=== PATIENT | male | born 1995 | race Caucasian/White ===

== ENCOUNTER 2016-06-27 01:15 | Inpatient (IN) | payer OTHER ==
--- NOTE | 2016-06-27 01:53 | ED ---
Psych HPI - General Source: patient, RN notes reviewed Mode of arrival: ambulatory <Angela Mahan - Last Filed: 06/27/16 03:55> <Arya Penaloza - Last Filed: 06/27/16 06:11> - General Chief Complaint: Psychiatric Symptoms Stated Complaint: petition Time Seen by Provider: 06/27/16 01:29 - History of Present Illness Initial Comments: 21-year-old male presents to the emergency department with a chief complaint of suicidal ideation. Patient states earlier today he was having thoughts of suicide as well as a plan to hang himself he talked his brother who talked him out of it. Patient states he's never been diagnosed with any psychiatric disorder. Patient states he does have a lot of stress in his life at this time. Patient states is not currently suffering from any acute medical concerns. Patient denies any recent fever, chills, shortness of breath, chest pain, back pain, abdominal pain, nausea vomiting, numbness or tingling, dysuria or hematuria, constipation or diarrhea, headaches or visual changes, or any other current symptoms. (Angela Mahan) - Related Data Home Medications Medication Instructions Recorded Confirmed No Known Home Medications [No 06/27/16 06/27/16 Known Home Medications] Allergies Allergy/AdvReac Type Severity Reaction Status Date / Time No Known Allergies Allergy Verified 06/27/16 01:27 Review of Systems ROS Other: All systems not noted in ROS Statement are negative. <Angela Mahan - Last Filed: 06/27/16 03:55> ROS Other: All systems not noted in ROS Statement are negative. <Arya Penaloza - Last Filed: 06/27/16 06:11> ROS Statement: Those systems with pertinent positive or pertinent negative responses have been documented in the HPI. Past Medical History Past Medical History: No Reported History History of Any Multi-Drug Resistant Organisms: None Reported Past Surgical History: Appendectomy Past Psychological History: No Psychological Hx Reported Smoking Status: Current every day smoker Past Alcohol Use History: Occasional Past Drug Use History: Marijuana <Angela Mahan - Last Filed: 06/27/16 03:55> General Exam Limitations: no limitations General appearance: alert, in no apparent distress Head exam: Present: atraumatic, normocephalic, normal inspection Neck exam: Present: normal inspection. Absent: tenderness, meningismus, lymphadenopathy Respiratory exam: Present: normal lung sounds bilaterally. Absent: respiratory distress, wheezes, rales, rhonchi, stridor Cardiovascular Exam: Present: regular rate, normal rhythm, normal heart sounds. Absent: systolic murmur, diastolic murmur, rubs, gallop, clicks Neurological exam: Present: alert, oriented X3, CN II-XII intact Psychiatric exam: Present: normal affect, depressed, other (No current suicidal thoughts. No current plan.). Absent: homicidal ideation, suicidal ideation Skin exam: Present: warm, dry, intact, normal color. Absent: rash <Angela Mahan - Last Filed: 06/27/16 03:55> Course <Angela Mahan - Last Filed: 06/27/16 03:55> <Arya Penaloza - Last Filed: 06/27/16 06:11> Vital Signs 06/27/16 06/27/16 01:22 05:26 Temperature 97.8 F 97.8 F Pulse Rate 68 78 Respiratory 18 24 Rate Blood Pressure 139/82 108/62 O2 Sat by Pulse 98 98 Oximetry - Reevaluation(s) Reevaluation #1: 06/27/16 03:59 The patient was brought in for evaluation and was evaluated by the psychiatric service and will be admitted for inpatient treatment. (Arya Penaloza) Reevaluation #2: 06/27/16 05:16 A physician cert was filled out by me. (Arya Penaloza) Reevaluation #3: 06/27/16 06:10 At this time apparently the patient's insurance is not covered in this facility an alternative treatment facility is currently being explored. (Arya Penaloza) Medical Decision Making <Angela Mahan - Last Filed: 06/27/16 03:55> <Arya Penaloza - Last Filed: 06/27/16 06:11> - Medical Decision Making 21-year-old male presents to the emergency department chief complaint of suicidal thoughts and plan and it did happen earlier that has since resolved. At this time the patient does not appear to be suffering from any acute medical emergencies. Stent patient is cleared to be evaluated by psychiatry. At this time the patient will be admitted to psychiatry as discussed with the patient and he did sign an willingly. (Angela Mahan) - Lab Data Lab Results 06/27/16 Range/Units 01:45 Urine Opiates Screen Not Detected (NotDetected) Ur Oxycodone Screen Not Detected (NotDetected) Urine Methadone Screen Not Detected (NotDetected) Ur Propoxyphene Screen Not Detected (NotDetected) Ur Barbiturates Screen Not Detected (NotDetected) U Tricyclic Antidepress Not Detected (NotDetected) Ur Phencyclidine Scrn Not Detected (NotDetected) Ur Amphetamines Screen Not Detected (NotDetected) U Methamphetamines Scrn Not Detected (NotDetected) U Benzodiazepines Scrn Not Detected (NotDetected) Urine Cocaine Screen Not Detected (NotDetected) U Marijuana (THC) Screen Detected H (NotDetected) Disposition Time of Disposition: 02:35 <Angela Mahan - Last Filed: 06/27/16 03:55> <Arya Penaloza - Last Filed: 06/27/16 06:11> Clinical Impression: Depression, Suicidal ideation Disposition: TRANSFER TO PSYCH HOSP/UNIT Condition: Stable Referrals: None,Stated [Primary Care Provider] - 1-2 days
[2016-06-27] MEDS: NICOTINE 21MG/24HR PATCH TRANSDERM STA ×2 (06:01→06:02)
[2016-06-27 06:42] LABS: Basophils % (A) 0 %; CH 33.7; CHCM 37.2; Eosinophils % (A) 0 %; HCT 45.6 % (39.0-53.0); HGB 15.9 gm/dL (13.0-17.5); Luc # (Auto) 0.16; Luc % (Auto) 2; Lymphocytes # (A) 1.7 k/uL (1.0-4.8); Lymphocytes % (A) 19 %; MCH 31.7 pg (25.0-35.0); MCHC 34.9 g/dL (31.0-37.0); MCV 90.8 fL (80.0-100.0); Mean Platelet Volume 6.9; Monocytes # (A) 0.6 k/uL (0-1.0); Monocytes % (A) 7 %; Neutrophils # (A) 6.4 k/uL (1.3-7.7); Neutrophils % (A) 72 %; RBC 5.02 m/uL (4.30-5.90); RDW 12.5 % (11.5-15.5); WBC 8.9 k/uL (4.0-11.0); WBC (Perox) 8.98
[2016-06-27 06:43] LABS: Appearance,Urine Clear (Clear); Bilirubin,Urine Negative (Negative); Glucose,Urine (UA) Negative (Negative); Ketones,Urine Negative (Negative); Leukocyte Esterase,Urine Negative (Negative); Nitrite,Urine Negative (Negative); PH, Urine 5.5 (5.0-8.0); Protein,Urine Trace (Negative); Specific Gravity,Urine 1.018 (1.001-1.035); UA Billing (MACRO vs. MICRO) CHEM; Urobilinogen,Urine <2.0 mg/dL (<2.0)
[2016-06-27 06:50] LABS: ALT 35 U/L (21-72); AST 24 U/L (17-59); Alkaline Phosphatase 72 U/L (38-126); Anion Gap 13 mmol/L; Blood Urea Nitrogen 10 mg/dL (9-20); Calcium 9.8 mg/dL (8.4-10.2); Carbon Dioxide 25 mmol/L (22-30); Chloride 106 mmol/L (98-107); Glucose 91 mg/dL (74-99); Non-African American GFR(MDRD) >60 (>60 ml/min/1.73 sqM); Potassium 3.9 mmol/L (3.5-5.1); Sodium 144 mmol/L (137-145); Total Bilirubin 0.7 mg/dL (0.2-1.3)
[2016-06-27] MEDS ORDERED: MAG HYDROX/AL HYDROX/SIMETH 30 ML CUP PO PRN (10:06)
[2016-06-27] MEDS ORDERED: ACETAMINOPHEN TAB 325 MG TAB PO PRN (10:06)
[2016-06-27] MEDS ORDERED: ZIPRASIDONE 20 MG VIAL IM PRN (10:06)
[2016-06-27] MEDS ORDERED: MAGNESIUM HYDROXIDE 2,400 MG/10 ML CUP PO PRN (10:06)
[2016-06-27 11:03] VITALS: BMI 17.1
--- NOTE | 2016-06-27 15:33 | P.CONS ---
History of Present Illness - Reason for Consult Consult date: 06/27/16 Medical management - History of Present Illness This is a 21-year-old male. He does not have a primary care physician with past history of scoliosis, tobacco use and dependence. He states that he had in a big fight with his parents and then threatened to kill himself. He denies any plan. He states he has been depressed for a while. He has not sought treatment or been on any medications. His parents made him come into [facility] emergency center for evaluation. Urinalysis detected marijuana. He states he uses marijuana occasionally. He denies any physical concerns at this time. Review of Systems All systems: negative Constitutional: Denies chills, Denies fever Eyes: denies blurred vision, denies pain Ears, nose, mouth and throat: Denies headache, Denies sore throat Cardiovascular: Denies chest pain, Denies shortness of breath Respiratory: Denies cough Gastrointestinal: Denies abdominal pain, Denies diarrhea, Denies nausea, Denies vomiting Musculoskeletal: Denies myalgias Integumentary: Denies pruritus, Denies rash Neurological: Denies numbness, Denies weakness Psychiatric: Reports depression, Reports hopelessness, Reports suicidal ideation , Denies anxiety Endocrine: Denies fatigue, Denies weight change Past Medical History Past Medical History: No Reported History Additional Past Medical History / Comment(s): Back pain since age 15 History of Any Multi-Drug Resistant Organisms: None Reported Past Surgical History: Appendectomy Past Anesthesia/Blood Transfusion Reactions: No Reported Reaction Past Psychological History: No Psychological Hx Reported Smoking Status: Current every day smoker Past Alcohol Use History: Occasional Additional Past Alcohol Use History / Comment(s): Patient is a smoker of one half to one pack per day since he was 17 years old. He smokes marijuana occasionally. He drinks alcohol occasionally. He denies any other street drug use. Past Drug Use History: Marijuana - Past Family History Father Additional Family Medical History / Comment(s): Father is 49 years of age with chronic back problems. Mother Additional Family Medical History / Comment(s): Mother is alive at age 46 with no major medical problems. Brother(s) Additional Family Medical History / Comment(s): Patient has 1 brother with no major medical problems. Patient has 1 sister with no major medical problems. Patient does not have any children. Medications and Allergies Home Medications Medication Instructions Recorded Confirmed Type No Known Home Medications [No 06/27/16 06/27/16 History Known Home Medications] Allergies Allergy/AdvReac Type Severity Reaction Status Date / Time No Known Allergies Allergy Verified 06/27/16 13:52 Physical Exam Vitals: Vital Signs Temp Pulse Pulse Resp BP BP Pulse Ox 06/27/16 10:19 98 F 77 18 105/86 96 06/27/16 09:57 97.6 F 81 17 124/74 Intake and Output 06/26/16 06/27/16 06/27/16 22:59 06:59 14:59 Other: Weight 57.153 kg Patient Weight 06/28/16 06:59 Weight 57.153 kg Gen: This is a thin 21-year-old male. He is cooperative and appears to be in no acute distress. HEENT: Head is atraumatic, normocephalic. Pupils equal, round. Sclerae is anicteric. NECK: Supple. No JVD. No lymphadenopathy. No thyromegaly. LUNGS: Clear to auscultation. No wheezes or rhonchi. No intercostal retractions. HEART: Regular rate and rhythm. No murmur. ABDOMEN: Soft. Bowel sounds are present. No masses. No tenderness. EXTREMITIES: No pedal edema. No calf tenderness. NEUROLOGICAL: Patient is awake, alert and oriented x3. Cranial nerves 2 through 12 are grossly intact. Results CBC & Chem 7: 06/27/16 06:30 06/27/16 06:30 Assessment and Plan Plan: 1. Depression with threat of suicide. Patient admitted to the mental health unit. Continue current plan of care. 2. Tobacco use and dependence. Continue nicotine patch. 3. Scoliosis with chronic back pain. Continue Tylenol as needed. 4. Occasional marijuana use. Continue as in #1. Impression and plan of care have been directed as dictated by the signing physician. Graciela Mo nurse practitioner acting as scribe for signing physician. Time with Patient: Greater than 30
--- NOTE | 2016-06-27 19:10 | HP ---
DATE OF ADMISSION: 06/27/2016 IDENTIFYING DATA: Patient is a 21-year-old single male, currently living with his family. Patient presented to the mental health unit through the emergency room with suicidal ideation. HISTORY OF PRESENT ILLNESS: The patient stated that he has been struggling with symptoms of depression for the last year since he lost his best friend who was killed in July of 2015 with a hit-and-run accident. Patient reported that his depression has been getting worse over the last couple of weeks due to multiple stressors in his life. 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 In addition, he was arrested recently driving on a suspended license, and even today he is supposed to be in court. He also has a lot of relationship problems between him and his family. Patient stated that he has been not able to sleep at night due to high anxiety, racing thoughts, and "I always over-analyze everything." Patient reports suicidal ideation with different plans over the last couple of days, including shooting himself with a hunting rifle or hang himself. Initially patient was petitioned by his mother, and according to the petition she stated patient did verbalize suicidal ideation with the plan to shoot himself and he said, "I want to end it all once and for all." Even when they took the rifle from him, he said, "There are other ways to kill myself." Patient endorses that he has a lot of obsessions with pornography since age 13, and his family did not find out until he turned 16. Patient stated that since they found out, they have been having mistrust in his behavior, especially when it comes to his younger sister who is turning 18 years of age. Patient said, "I know that I am very sexually preoccupied, but I cannot stop it." He denied any child pornography, but he describes that his obsession with pornography is his way to relieve a lot of anxiety and worries. Patient does not endorse manic episodes. He is reporting no thought of harming others. He is endorsing no current auditory or visual hallucinations. He talked in detail that he lost at least 3 best friends over the last couple of years, and the three of them from accidents or hit and run. PAST PSYCHIATRIC HISTORY: This is his first inpatient psychiatric admission. There is no history of suicidal attempt in the past. There is brief outpatient family counseling at age 16, as he was having issues with pornography and getting into fights with his siblings. There is no previous trial on any psychotropic medication. SUBSTANCE ABUSE HISTORY: Marijuana. He started smoking marijuana at age 17, and he does smoke it between 2 and 3 times a month. Last time it was a couple of days ago. His urine drug screen was positive for cannabis. He denied any other illicit drug use. FAMILY HISTORY OF CHEMICAL DEPENDENCY AND MENTAL ILLNESS: Alcohol use disorder running on both sides of his family, as his maternal aunt and maternal uncles struggle with drinking problems. MEDICATIONS: No known medication. ALLERGIES: NO KNOWN ALLERGY. ACUTE MEDICAL PROBLEMS: None. VITAL SIGNS: Temperature 97.8, pulse 68, respiration rate 18, blood pressure 139/82. LEGAL PROBLEMS: Patient was recently arrested with driving on a suspended license. He stated that he has a lots of unpaid traffic tickets, up to $700. He denied any domestic assault behavior. SOCIAL HISTORY: Patient is the middle of 3. He has one older brother and one younger sister. He graduated from high school. He denied any history of physical or sexual abuse. He stated that his father is working in the post office and his mother is an warranty administrator at [employer]. He had a couple of classes in college. 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 The longest relationship that he had was 2 years ago for one year. He was in this relationship from October until January. Then she left to work in [place], [place]. Currently he is involved in a 2-month relationship. He describes a lot of relationship problems with his family, especially since he has been laid off. MENTAL STATUS EXAMINATION: Patient is a male who appears his stated age. He was dressed in hospital gown. Good eye contact. Speech is coherent, non-pressured. Thought process is linear and goal-directed. There is no evidence of loose association. He endorses depressed mood with suicidal ideation with different plans. He reports no homicidal ideation. Affect is constricted. He demonstrated no verbal or physical aggression. No psychomotor agitation. He denied any visual or auditory hallucinations. He denied any delusion or idea of reference. He does not appear manic or hypomanic. His cognitive function is intact, as he is alert and oriented to person, place and date. He is able to name the day of the week. He is able to recall 3 objects after a delay of several minutes. His insight and judgment are limited. Intellectual function is average. Strengths: Patient is aware of his rumination and his obsession regarding pornography. Weaknesses: Income, legal problem, relationship problems with his family, grieving the loss of 3 friends over the last couple of years. IMPRESSION: 1. Major depression disorder, single episode, moderate to severe, without psychotic features. 2. Marijuana use disorder. 3. Obsessive-compulsive disorder. 4. Psychosocial dysfunction due to the symptoms of depression, grief, legal problem and relationship issues with the family. PLAN: Patient has been admitted to the mental health unit. He did agree to sign himself in voluntarily. I did review his symptoms and medication options. He did agree to start Paxil and to participate in group therapy and activity therapy. Will request a routine medical consultation. Social Work will meet with the patient's family to have complete psychosocial assessment. Length of stay 3 to 5 days. MTDD
[2016-06-27] MEDS: PARoxetine 20 MG TAB PO SCH (19:39)
[2016-06-28] MEDS: NICOTINE 21MG/24HR PATCH TRANSDERM SCH ×2 (10:00→16:04)
--- NOTE | 2016-06-28 12:45 | P.PN ---
Subjective Principal diagnosis: SUBJECTIVE: Patient endorses:poor sleep ,low self esteem ,"HAVING SUICIDAL IDEATION OFF AND ON SINCE MIDDLE SCHOOL",,fear of criticism or being rejected,feeling of failure and "Inferior to my brother and my sister",helpless regarding his living situation,tired and lacking energy ,racing thoughts and sexually preoccupied MENTAL STATUS EXAM: Patient is casually dressed ,fair grooming ,teary eyes when talking about " BEING BULLIED IN MIDDLE SCHOOL",affect is appropriate,speech is coherent but limited in productivity,denies psychotic features ,endorses suicidal ideations, denies homicidal ideation ,cognitive function is intact ,insight is improving ASSESSMENT:Patient endorses chronic low-self esteem ,depression and marked distress about his sexual obsession PLAN: Continue Paxil ,add Trazodone for sleep ,family meeting for collateral information ,encourage groups participation.We'll continue to monitor for any medication side effects, monitor for his ongoing response to treatment. Continue to monitor regarding suicidal ideation Objective - Vital Signs Vital signs: Vital Signs Temp 97.4 F L 06/28/16 06:15 Pulse 71 06/28/16 06:15 Resp 16 06/28/16 06:15 BP 111/78 06/28/16 06:15 Pulse Ox 96 06/27/16 10:19 Intake & Output 06/27/16 06/28/16 06/28/16 18:59 06:59 18:59 Weight 57.153 kg - Labs CBC & Chem 7: 06/27/16 06:30 06/27/16 06:30
[2016-06-28] MEDS ORDERED: traZODone HCL 50 MG TAB PO PRN (12:46)
[2016-06-28] MEDS: PARoxetine 20 MG TAB PO SCH (18:56)
[2016-06-29 06:33] VITALS: TEMP 97.7
[2016-06-29] MEDS: NICOTINE 21MG/24HR PATCH TRANSDERM SCH (09:36)
--- NOTE | 2016-06-29 11:59 | P.PN ---
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" MENTAL STATUS EXAM: Patient is casually dressed ,fair grooming , not forthcoming with past history , affect is appropriate,speech is coherent but limited in productivity,denies psychotic features ,denies suicidal ideation,denies homicidal ideation , cognitive function is intact ,insight is improving ASSESSMENT:Patient endorses chronic low-self esteem ,depression and marked distress about his sexual obsession PLAN: Continue Paxil ,discontinue Trazodone ,add Seroquel for sleep ,family meeting for collateral information ,encourage groups participation.We'll continue to monitor for any medication side effects, monitor for his ongoing response to treatment.
[2016-06-29] MEDS ORDERED: QUEtiapine 50 MG TAB PO PRN (12:00)
[2016-06-29] MEDS: PARoxetine 20 MG TAB PO SCH (18:55)
[2016-06-30 06:46] VITALS: BP 114/59; PULSE 75; RESP 18
[2016-06-30] MEDS: NICOTINE 21MG/24HR PATCH TRANSDERM SCH (09:50)
--- NOTE | 2016-07-01 08:32 | DS ---
DATE OF ADMISSION: 06/27/2016 DATE OF DISCHARGE: 06/30/2016 CONSULT PHYSICIAN: Yoselin. CONSULTING PROVIDER: Graciela Mo REASON FOR CONSULTATION: Medical management. DO YOU WANT CONSULTING PROVIDER NOTIFIED: Yesterday. DISCHARGE DIAGNOSIS: 1. Major depression, single episode in early remission. 2. Cannabis use disorder. 3. History of scoliosis and chronic back pain. 4. Tobacco use disorder. 5. Cluster C personality disorder. For brief summary of admission notes, please refer to my initial psychiatric history and physical examination. HOSPITAL COURSE: Initially patient was admitted on petition filled by his mother and clinical certificate from the ER physician, but he did sign in voluntary. Once he was admitted to the mental health unit, I did review his psychiatric medication and the option of treatment, and he did agree to start low dose of Paxil 20 mg daily to target his depression, anxiety, and his obsession. Patient was having trouble sleeping that night and trazodone was not effective as it seems he has irrational fear of sleeping with another roommate. So I did give him Seroquel 50 mg at bedtime that was very effective and he was able to sleep between 6 to 7 hours in the night. While on the mental health unit, patient was very calm, cooperative and attending all the groups. Our administrator social welfare was able to contact patient's mother who stated that patient is welcomed back to stay with them temporarily until August then he is planning to move to [place] to stay with his best friend. Patient did participate in individual session and was able to receive input regarding his avoidant personality, low self esteem and lacking confidence. Patient does have a family meeting scheduled with his parent this late afternoon. MENTAL STATUS EXAMINATION: At the time of discharge, patient is alert, good eye contact, appropriate in hygiene and grooming. Speech is spontaneous, coherent, and goal directed. Thought process is linear. He denied homicidal or suicidal ideation, intent or plan. He does not feel hopeless, does not have access to firearms. There is no evidence of hypomania or akiko. There is no evidence of psychosis. His insight and judgment improved. There is no verbal or physical aggression observed. PLAN: Patient will be discharged from the mental health unit today after the family meeting and he will return back to stay with his parent. Patient will continue on Paxil 20 mg once a day for anxiety and depression, Seroquel 50 mg at bedtime for sleep. Patient was referred for individual counseling. There is no eminent safety risk and he is very appropriate for transition back to outpatient care. Patient was instructed to return back to the emergency room if any acute safety concern. Prognosis fair with continued treatment and counseling and abstain from marijuana.
== END 2016-06-30 16:14 | disposition home or self-care (01) | DRG 885 ==
LOC: EC 01:15 → 3MHU 09:56
PROVIDERS: ADMIT Psychiatry & Neurology Psychiatry; ATTEND Psychiatry & Neurology Psychiatry
DX: F32.2 Major depressive disorder, single episode, severe without psychotic features (principal); M41.9 Scoliosis, unspecified; R45.851 Suicidal ideations; F41.9 Anxiety disorder, unspecified; F17.200 Nicotine dependence, unspecified, uncomplicated; F12.90 Cannabis use, unspecified, uncomplicated; F42.9 Obsessive-compulsive disorder, unspecified; F60.89 Other specific personality disorders; Z59.9 Problem related to housing and economic circumstances, unspecified; Z81.4 Family history of other substance abuse and dependence; G89.29 Other chronic pain; M54.9 Dorsalgia, unspecified
CPT/HCPCS: 36415; 80053; 80306; 81003; 82075; 85025; 99285